=== PATIENT | female | born 1935 | race Caucasian/White ===

== ENCOUNTER 2016-12-01 13:47 | Outpatient (CLI) | payer OTHER, MEDICARE | END 2016-12-01 20:59 | disposition home or self-care (01) | LOC: SRD 13:47 | PROVIDERS: ATTEND General Practice | DX: J44.9 Chronic obstructive pulmonary disease, unspecified (principal); F17.200 Nicotine dependence, unspecified, uncomplicated; R09.89 Other specified symptoms and signs involving the circulatory and respiratory systems | CPT/HCPCS: 71020-TC ==

== ENCOUNTER 2017-02-02 13:06 | Outpatient (CLI) | payer OTHER, MEDICARE | END 2017-02-02 19:31 | disposition home or self-care (01) | LOC: SMA 13:06 | PROVIDERS: ATTEND General Practice | DX: N63 Unspecified lump in breast (principal); N60.01 Solitary cyst of right breast; N60.02 Solitary cyst of left breast | CPT/HCPCS: 76641; G0204 ==

== ENCOUNTER 2017-02-23 15:02 | Outpatient (CLI) | payer OTHER, MEDICARE | END 2017-02-23 18:01 | disposition home or self-care (01) | LOC: SRD 15:02 | PROVIDERS: ATTEND General Practice | DX: M47.26 Other spondylosis with radiculopathy, lumbar region (principal); M48.06 Spinal stenosis, lumbar region | CPT/HCPCS: 72110 ==

== ENCOUNTER 2017-08-10 13:36 | Outpatient (CLI) | payer OTHER, MEDICARE | END 2017-08-10 20:00 | disposition home or self-care (01) | LOC: SMA 13:36 | PROVIDERS: ATTEND General Practice | DX: N63.0 Unspecified lump in unspecified breast (principal); R92.2 Inconclusive mammogram | CPT/HCPCS: 76641; 77066 ==

== ENCOUNTER 2018-05-17 15:48 | Outpatient (CLI) | payer OTHER, MEDICARE | END 2018-05-17 19:14 | disposition home or self-care (01) | LOC: SRD 15:48 | PROVIDERS: ATTEND General Practice | DX: I70.8 Atherosclerosis of other arteries (principal); M75.32 Calcific tendinitis of left shoulder; Z87.891 Personal history of nicotine dependence | CPT/HCPCS: 71046-TC ==

== ENCOUNTER 2018-09-10 14:03 | Outpatient (CLI) | payer OTHER, MEDICARE | END 2018-09-10 20:30 | disposition home or self-care (01) | LOC: SMA 14:03 | PROVIDERS: ATTEND General Practice | DX: N63.13 Unspecified lump in the right breast, lower outer quadrant (principal); N63.21 Unspecified lump in the left breast, upper outer quadrant | CPT/HCPCS: 76641; 77066 ==

== ENCOUNTER 2019-04-15 12:53 | Outpatient (CLI) | payer OTHER, MEDICARE | END 2019-04-15 20:06 | disposition home or self-care (01) | LOC: SMA 12:53 | PROVIDERS: ATTEND General Practice | DX: N63.22 Unspecified lump in the left breast, upper inner quadrant (principal); R92.2 Inconclusive mammogram; R91.1 Solitary pulmonary nodule | CPT/HCPCS: 76641; 77066 ==

== ENCOUNTER 2020-11-30 09:00 | Inpatient (IN) | payer OTHER, MEDICARE, SELFPAY ==
[~2020-11-30] VITALS: Ht 167.6 cm; Wt 58.1 kg
[2020-11-30 12:07] LABS: BASOPHILS # (AUTO) 0.1 K/uL (0.0-0.2); EOSINOPHILS # (AUTO) 0.1 K/uL (0.0-0.4); MONOCYTES # (AUTO) 0.6 K/uL (0.0-1.0); NEUTROPHILS # (AUTO) 2.8 K/uL (1.8-7.7); RED BLOOD CELL COUNT(AUTO) 3.55 MIL/uL (4.2-6.2)
[2020-11-30 12:13] LABS: BASOPHILS % (AUTO) 1.5 % (0.0-2.0); EOSINOPHILS % (AUTO) 2.1 % (0.0-4.0); HEMATOCRIT 30.8 % (36-48); HEMOGLOBIN 10.2 g/dL (12.0-16.0); LYMPHOCYTES # (AUTO) 2.3 K/uL (1.0-5.5); MEAN CORPUSCULAR HEMOGLOBIN 29 pg (27-31); MEAN CORPUSCULAR HGB CONC 33 % (32-36); MEAN CORPUSCULAR VOLUME 87 fL (79.0-98.0); MONOCYTES % (AUTO) 10.4 % (1.7-9.3); PLATELET COUNT (AUTO) 216 K/uL (130-430); RED CELL DISTRIBUTION WIDTH 16.4 % (9.0-15.0)
[2020-11-30 12:26] LABS: ALANINE AMINOTRANSFERASE 18 U/L (12-78); ALBUMIN 3.6 g/dL (3.4-4.8); ANION GAP 5 (5-15); ASPARTATE AMINOTRANSFERASE 21 U/L (10-37); CALCIUM 8.7 mg/dL (8.4-11.0); CHLORIDE 106 mmol/L (98-107); CREATININE 1.21 mg/dL (0.55-1.30); GLUCOSE 96 mg/dL (70-99); SODIUM SERUM 140 mmol/L (136-145); TOTAL BILIRUBIN 0.3 mg/dL (0.0-1.0); UREA NITROGEN, BLOOD 29 mg/dL (8-21)
[2020-11-30 12:36] LABS: INR 1.1 (0.8-1.2); PROTHROMBIN TIME 10.8 SECS (9.5-12.5)
[2020-11-30 13:46] LABS: BILIRUBIN,URINE NEGATIVE (NEGATIVE); BLOOD, URINE NEGATIVE (NEGATIVE); COLOR,URINE YELLOW (YELLOW); GLUCOSE,URINE NEGATIVE (NEGATIVE); KETONES,URINE NEGATIVE (NEGATIVE); LEUKOCYTE ESTERASE ,URINE NEGATIVE (NEGATIVE); NITRITE, URINE NEGATIVE (NEGATIVE); PROTEIN URINE TRACE (NEGATIVE); UROBILINOGEN,URINE 0.2 (0.2-1.0)
[2020-11-30 13:50] LABS: CLARITY/URINE SLIGHTLY HAZY (CLEAR)
[2020-12-03] MEDS ORDERED: CEFAZOLIN 1 GM IVPB PREMIX 50 ML IV ONE (07:00)
[2020-12-03] MEDS ORDERED: MULT-1199 PO (13:24)
[2020-12-03] MEDS ORDERED: NEU300 PO (13:24)
[2020-12-03] MEDS ORDERED: FOSI20TA98 PO (13:24)
[2020-12-03] MEDS ORDERED: FENO160 PO (13:24)
[2020-12-03] MEDS ORDERED: AMLO5TAB4 PO (13:24)
[2020-12-03] MEDS ORDERED: OXYC10TA56 PO (13:24)
[2020-12-03] MEDS ORDERED: PSYL575P22 PO (13:24)
[2020-12-03] MEDS ORDERED: DOCU250C14 PO (13:24)
[2020-12-03] MEDS ORDERED: OXYIR5 PO (13:24)
[2020-12-03] MEDS ORDERED: LIP40 PO (13:24)
[2020-12-03] MEDS ORDERED: POLYMYXIN 500,000/BACIT.10,000 UNITS in NS IRR 1 L IR ONE (13:38)
[2020-12-03] MEDS ORDERED: BUPIVACAINE LIPOSOME/PF 266 MG/20 ML VIAL INFIL ONE (13:38)
[2020-12-03] MEDS ORDERED: LR 1,000 ML IV.SOLN IV ONE (14:20)
[2020-12-03] MEDS ORDERED: BUPIVACAINE /EPINEPHRINE/PF 0.25% 30 ML VIAL INJ ONE (14:20)
[2020-12-03] MEDS ORDERED: MIDAZOLAM HCL 5 MG/5 ML VIAL IVP ONE (14:20)
[2020-12-03] MEDS ORDERED: PROPOFOL 200MG/ 20ML VIAL (DIPRIVAN) IV ONE (14:20)
[2020-12-03] MEDS ORDERED: methylPREDNISolone ACETATE 40 MG/ML IM ONE (14:20)
[2020-12-03] MEDS ORDERED: NORMAL SALINE 10 ML VIAL IVP ONE (14:20)
[2020-12-03] MEDS ORDERED: MORPHINE SULFATE 10MG/10ML PF AMP EP ONE (14:20)
[2020-12-03] MEDS ORDERED: DIPHENHYDRAMINE INJ 50 MG/ML VIAL IVP PRN (17:00)
[2020-12-03] MEDS ORDERED: NALOXONE HCL 0.4 MG/ML AMP (NARCAN) IVP PRN ×2 (17:00)
[2020-12-03] MEDS ORDERED: ONDANSETRON 4 MG ODT TAB PO PRN (17:00)
[2020-12-03] MEDS ORDERED: NALBUPHINE HCL 10 MG/ML AMP IVP PRN (17:00)
[2020-12-03] MEDS ORDERED: MORPHINE SULFATE 10MG/10ML PF AMP SP SCH (17:00)
[2020-12-03] MEDS ORDERED: ACETAMINOPHEN 325 MG TABLET PO PRN (17:00)
[2020-12-03] MEDS ORDERED: KETOROLAC TROMETHAMINE 60 MG/2 ML VIAL IM PRN (17:00)
[2020-12-03] MEDS ORDERED: ONDANSETRON HCL 4 MG/2 ML VIAL IVP PRN ×2 (17:00)
[2020-12-03] MEDS ORDERED: fentaNYL CITRATE/PF 100 MCG/2 ML AMP IVP PRN ×2 (17:00)
[2020-12-03 18:46] VITALS: BP_SYST 111
[2020-12-03 19:30] VITALS: BP_SYST 111
[2020-12-03 20:00] VITALS: BP_SYST 122
[2020-12-03 20:12] VITALS: BP_SYST 111
[2020-12-03] MEDS: GABAPENTIN 300 MG CAPSULE PO SCH (21:56)
[2020-12-03] MEDS: DOCUSATE SODIUM 100 MG CAPSULE PO SCH (21:56)
[2020-12-03] MEDS: ATORVASTATIN 20 MG TABLET PO SCH (21:56)
[2020-12-03] MEDS: amLODIPine BESYLATE 5 MG TABLET PO SCH (21:57)
[2020-12-03] MEDS ORDERED: CEFAZOLIN 1 GM IVPB PREMIX 100 ML IV ONE (22:45)
[2020-12-03] MEDS: CEFAZOLIN 1 GM IVPB PREMIX 50 ML IV SCH (22:48)
[2020-12-03] MEDS: OXYCODONE/ACETAMINOPHEN *10*mg/325 mg TABLET PO PRN (23:18)
[2020-12-03 23:54] LABS: BILIRUBIN,URINE NEGATIVE (NEGATIVE); BLOOD, URINE NEGATIVE (NEGATIVE); CLARITY/URINE CLEAR (CLEAR); COLOR,URINE YELLOW (YELLOW); GLUCOSE,URINE NEGATIVE (NEGATIVE); KETONES,URINE NEGATIVE (NEGATIVE); LEUKOCYTE ESTERASE ,URINE NEGATIVE (NEGATIVE); NITRITE, URINE NEGATIVE (NEGATIVE); PH,URINE 5.5 (5.0-8.0); PROTEIN URINE NEGATIVE (NEGATIVE); UROBILINOGEN,URINE 0.2 (0.2-1.0)
[2020-12-04 00:39] VITALS: BP_SYST 159
[2020-12-04] MEDS: CEFAZOLIN 1 GM IVPB PREMIX 50 ML IV SCH (05:11)
[2020-12-04 07:15] LABS: HEMATOCRIT 19.8 % (36-48); HEMOGLOBIN 6.4 g/dL (12.0-16.0)
[2020-12-04 08:00] VITALS: BP_SYST 141
[2020-12-04] MEDS: MULTIVITS,CA,MINERALS/IRON/FA 1 TABLET PO SCH (08:51)
[2020-12-04] MEDS: amLODIPine BESYLATE 5 MG TABLET PO SCH ×2 (08:51→21:29)
[2020-12-04] MEDS: GABAPENTIN 300 MG CAPSULE PO SCH ×2 (08:51→21:28)
[2020-12-04] MEDS: lisinopriL 20 MG TABLET PO SCH (08:51)
[2020-12-04] MEDS: DOCUSATE SODIUM 100 MG CAPSULE PO SCH ×2 (08:51→21:28)
[2020-12-04] MEDS: OXYCODONE/ACETAMINOPHEN *10*mg/325 mg TABLET PO PRN ×2 (08:52→21:27)
[2020-12-04] MEDS: FENOFIBRATE 160 MG TABLET PO SCH (08:59)
[2020-12-04] MEDS ORDERED: FOSINOPRIL SODIUM 20 MG TABLET PO SCH (09:00)
[2020-12-04] MEDS ORDERED: DOCUSATE SODIUM 100 MG CAPSULE PO SCH (09:00)
[2020-12-04 11:19] VITALS: BP_SYST 149
[2020-12-04] MEDS: ENOXAPARIN SODIUM 40 MG/0.4 ML SYRINGE SUBCUT SCH (12:00)
[2020-12-04] MEDS: HYDROmorphone 2 MG/ML VIAL IVP PRN ×2 (14:57→23:58)
[2020-12-04 15:27] VITALS: BP_SYST 135
[2020-12-04 20:00] VITALS: BP_SYST 130
[2020-12-04] MEDS: ATORVASTATIN 20 MG TABLET PO SCH (21:28)
[2020-12-05 00:25] VITALS: BP_SYST 100
[2020-12-05] MEDS ORDERED: DIPHENHYDRAMINE HCL 12.5 MG/5 ML UDC PO PRN (01:00)
[2020-12-05 04:16] VITALS: BP_SYST 141
[2020-12-05] MEDS: OXYCODONE/ACETAMINOPHEN *10*mg/325 mg TABLET PO PRN ×2 (04:26→21:35)
[2020-12-05 08:14] LABS: BASOPHILS # (AUTO) 0.1 K/uL (0.0-0.2); BASOPHILS % (AUTO) 0.4 % (0.0-2.0); EOSINOPHILS % (AUTO) 0.1 % (0.0-4.0); HEMOGLOBIN 9.9 g/dL (12.0-16.0); LYMPHOCYTES # (AUTO) 1.7 K/uL (1.0-5.5); LYMPHOCYTES % (AUTO) 14.2 % (20.5-51.5); MEAN CORPUSCULAR HEMOGLOBIN 29 pg (27-31); MEAN CORPUSCULAR HGB CONC 33 % (32-36); MEAN CORPUSCULAR VOLUME 87 fL (79.0-98.0); MONOCYTES # (AUTO) 1.7 K/uL (0.0-1.0); MONOCYTES % (AUTO) 13.6 % (1.7-9.3); NEUTROPHILS # (AUTO) 8.7 K/uL (1.8-7.7); NEUTROPHILS % (AUTO) 71.7 % (40.0-70.0); PLATELET COUNT (AUTO) 131 K/uL (130-430); RED BLOOD CELL COUNT(AUTO) 3.45 MIL/uL (4.2-6.2); RED CELL DISTRIBUTION WIDTH 14.9 % (9.0-15.0); WHITE BLOOD COUNT (AUTO) 12.2 K/uL (4.8-10.8)
[2020-12-05 08:21] LABS: ANION GAP 9 (5-15); CALCIUM 8.8 mg/dL (8.4-11.0); CHLORIDE 106 mmol/L (98-107); CREATININE 1.14 mg/dL (0.55-1.30); GLUCOSE 112 mg/dL (70-99); SODIUM SERUM 140 mmol/L (136-145); UREA NITROGEN, BLOOD 30 mg/dL (8-21)
[2020-12-05] MEDS: MULTIVITS,CA,MINERALS/IRON/FA 1 TABLET PO SCH (09:15)
[2020-12-05] MEDS: FENOFIBRATE 160 MG TABLET PO SCH (09:15)
[2020-12-05] MEDS: GABAPENTIN 300 MG CAPSULE PO SCH ×2 (09:15→21:33)
[2020-12-05] MEDS: DOCUSATE SODIUM 100 MG CAPSULE PO SCH ×2 (09:15→21:33)
[2020-12-05] MEDS: amLODIPine BESYLATE 5 MG TABLET PO SCH ×2 (09:16→21:00)
[2020-12-05] MEDS: lisinopriL 20 MG TABLET PO SCH (09:17)
[2020-12-05] MEDS: ENOXAPARIN SODIUM 40 MG/0.4 ML SYRINGE SUBCUT SCH (09:19)
[2020-12-05] MEDS: HYDROmorphone 2 MG/ML VIAL IVP PRN ×2 (09:35→15:52)
[2020-12-05 11:25] VITALS: BP_SYST 158
[2020-12-05 14:59] VITALS: BP_SYST 139
[2020-12-05] MEDS ORDERED: MILK OF MAGNESIA 30 ML UDC PO PRN (15:45)
[2020-12-05 20:00] VITALS: BP_SYST 100
[2020-12-05] MEDS: ATORVASTATIN 20 MG TABLET PO SCH (21:33)
[2020-12-05] MEDS: PSYLLIUM HUSK 1 PKT PACKET PO SCH (21:34)
[2020-12-06 00:55] VITALS: BP_SYST 126
[2020-12-06] MEDS: HYDROmorphone 2 MG/ML VIAL IVP PRN (02:35)
[2020-12-06 07:56] VITALS: BP_SYST 165
[2020-12-06] MEDS: PSYLLIUM HUSK 1 PKT PACKET PO SCH ×2 (08:32→21:27)
[2020-12-06] MEDS: FENOFIBRATE 160 MG TABLET PO SCH (08:33)
[2020-12-06] MEDS: DOCUSATE SODIUM 100 MG CAPSULE PO SCH ×2 (08:33→21:20)
[2020-12-06] MEDS: OXYCODONE/ACETAMINOPHEN *10*mg/325 mg TABLET PO PRN ×3 (08:33→21:20)
[2020-12-06] MEDS: amLODIPine BESYLATE 5 MG TABLET PO SCH ×2 (08:33→21:21)
[2020-12-06] MEDS: lisinopriL 20 MG TABLET PO SCH (08:34)
[2020-12-06] MEDS: GABAPENTIN 300 MG CAPSULE PO SCH ×2 (08:34→21:20)
[2020-12-06] MEDS: ENOXAPARIN SODIUM 40 MG/0.4 ML SYRINGE SUBCUT SCH (08:35)
[2020-12-06] MEDS: MULTIVITS,CA,MINERALS/IRON/FA 1 TABLET PO SCH (08:35)
[2020-12-06 08:53] VITALS: BP_SYST 165
[2020-12-06 11:27] VITALS: BP_SYST 149
[2020-12-06 15:17] VITALS: BP_SYST 150
[2020-12-06 20:00] VITALS: BP_SYST 136
[2020-12-06] MEDS: ATORVASTATIN 20 MG TABLET PO SCH (21:22)
[2020-12-07 00:23] VITALS: BP_SYST 128
[2020-12-07] MEDS: HYDROmorphone 2 MG/ML VIAL IVP PRN ×3 (02:38→14:33)
[2020-12-07] MEDS: OXYCODONE/ACETAMINOPHEN *10*mg/325 mg TABLET PO PRN ×2 (06:52→21:43)
[2020-12-07 08:00] VITALS: BP_SYST 113
[2020-12-07] MEDS: GABAPENTIN 300 MG CAPSULE PO SCH ×2 (09:18→21:40)
[2020-12-07] MEDS: lisinopriL 20 MG TABLET PO SCH (09:19)
[2020-12-07] MEDS: PSYLLIUM HUSK 1 PKT PACKET PO SCH ×2 (09:19→21:40)
[2020-12-07] MEDS: DOCUSATE SODIUM 100 MG CAPSULE PO SCH ×2 (09:19→21:40)
[2020-12-07] MEDS: amLODIPine BESYLATE 5 MG TABLET PO SCH ×2 (09:19→21:41)
[2020-12-07] MEDS: MULTIVITS,CA,MINERALS/IRON/FA 1 TABLET PO SCH (09:20)
[2020-12-07] MEDS: ENOXAPARIN SODIUM 40 MG/0.4 ML SYRINGE SUBCUT SCH (09:20)
[2020-12-07] MEDS: FENOFIBRATE 160 MG TABLET PO SCH (09:20)
[2020-12-07 12:56] VITALS: BP_SYST 120
[2020-12-07 16:00] VITALS: BP_SYST 122
[2020-12-07 20:00] VITALS: BP_SYST 135
[2020-12-07] MEDS: ATORVASTATIN 20 MG TABLET PO SCH (21:41)
[2020-12-08] MEDS: OXYCODONE/ACETAMINOPHEN *10*mg/325 mg TABLET PO PRN ×3 (03:19→14:36)
[2020-12-08 04:00] VITALS: BP_SYST 139
[2020-12-08 08:00] VITALS: BP_SYST 152
[2020-12-08] MEDS: PSYLLIUM HUSK 1 PKT PACKET PO SCH (08:46)
[2020-12-08] MEDS: FENOFIBRATE 160 MG TABLET PO SCH (08:46)
[2020-12-08] MEDS: GABAPENTIN 300 MG CAPSULE PO SCH (08:46)
[2020-12-08] MEDS: amLODIPine BESYLATE 5 MG TABLET PO SCH (08:46)
[2020-12-08] MEDS: MULTIVITS,CA,MINERALS/IRON/FA 1 TABLET PO SCH (08:47)
[2020-12-08] MEDS: lisinopriL 20 MG TABLET PO SCH (08:47)
[2020-12-08] MEDS: DOCUSATE SODIUM 100 MG CAPSULE PO SCH (08:47)
[2020-12-08] MEDS: ENOXAPARIN SODIUM 40 MG/0.4 ML SYRINGE SUBCUT SCH (08:52)
[2020-12-08] MEDS: HYDROmorphone 2 MG/ML VIAL IVP PRN (09:30)
[2020-12-08 12:00] VITALS: BP_SYST 142
[2020-12-08 12:32] VITALS: BP_SYST 142
== END 2020-12-08 15:10 | DRG 470 ==
LOC: SMU 12-03 11:24
PROVIDERS: ADMIT Orthopaedic Surgery; ATTEND Orthopaedic Surgery
PROC: 0SRB0JZ Replacement of Left Hip Joint with Synthetic Substitute, Open Approach (ICD-10-PCS; principal; 2020-12-03 14:20)
PROC: 30233N1 Transfusion of Nonautologous Red Blood Cells into Peripheral Vein, Percutaneous Approach (ICD-10-PCS; 2020-12-04)
DX: M16.12 Unilateral primary osteoarthritis, left hip (principal); M17.11 Unilateral primary osteoarthritis, right knee; Z20.822 Contact with and (suspected) exposure to COVID-19
CPT/HCPCS: 36415; 71046-TC; 72170-TC; 80048; 80053; 81003; 85018; 85025; 85610-TC; 85730-TC; 86886; 86900; 86901; 86920; 87081; 88305; 88311; 93005; 94760; 97110-GP; 97112-GP; 97163; 97530-GP; C9290; J0690; J1030; J1170; J1650; J2250; J2274; J2704; J3490; J7040; J7120; P9021; U0003

== ENCOUNTER 2020-12-20 20:24 | Inpatient (IN) | payer OTHER, MEDICARE, SELFPAY ==
[~2020-12-20] VITALS: Ht 170.2 cm; Wt 57.6 kg
[~2020-12-20 20:24] MED LIST: AMLO5TAB4 PO; DOCU250C14 PO; FENO160 PO; FOSI20TA98 PO; GLYCOPYRROLATE 0.2 MG/ML VIAL IJ ONE; HYDROmorphone 2 MG/ML VIAL IVP ONE; LIDOCAINE 2%, 20 ML MDV INJ ONE; LIP40 PO; LR 1,000 ML IV.SOLN IV ONE; METOCLOPRAMIDE HCL 10 MG/2 ML VIAL IVP ONE; MULT-1199 PO; NEOSTIGMINE METHYLSULFATE 1 MG/ML, 10 ML VIAL IVP ONE; NEU300 PO; ONDANSETRON HCL 4 MG/2 ML VIAL IVP ONE; OXYC10TA56 PO; PRO40 PO; PROPOFOL 200MG/ 20ML VIAL (DIPRIVAN) IV ONE; PSYL575P22 PO; ROCURONIUM BROMIDE 10 MG/ML (ZEMURON) IV ONE; SEVOFLURANE 15 MIN GAS INH ONE; ePHEDrine sulfate 50 MG/ML VIAL IVP ONE
[2020-12-21 00:04] VITALS: BP_SYST 156
[2020-12-21] MEDS: HYDROmorphone 2 MG/ML VIAL IVP PRN ×3 (00:27→21:19)
[2020-12-21] MEDS: D5/0.45 NS 1,000 ML IV SCH ×3 (00:36→15:34)
[2020-12-21] MEDS ORDERED: ACET325T PO (00:54)
[2020-12-21] MEDS ORDERED: BISA5TAB10 PR (00:54)
[2020-12-21] MEDS ORDERED: LOVI40 SQ (00:54)
[2020-12-21] MEDS ORDERED: LISI40TA13 PO (00:54)
[2020-12-21] MEDS ORDERED: FENO145T PO (00:54)
[2020-12-21] MEDS ORDERED: MELA1TAB29 PO (00:54)
[2020-12-21] MEDS ORDERED: METH-799 PO (00:54)
[2020-12-21] MEDS ORDERED: LACT10SO7 PO (00:54)
[2020-12-21] MEDS ORDERED: FERR240T5 PO (00:54)
[2020-12-21] MEDS ORDERED: OXYC-128 PO (01:04)
[2020-12-21] MEDS ORDERED: TRAM50TA2 PO (01:04)
[2020-12-21] MEDS ORDERED: ACETAMINOPHEN 325 MG TABLET PO PRN (01:30)
[2020-12-21] MEDS ORDERED: traMADol HCL HCL 50 MG TABLET (ULTRAM) PO PRN (01:30)
[2020-12-21] MEDS ORDERED: NON-FORMULARY MEDICATION (Melatonin/Pyridoxine HCl (B6) (Melatonin 3 mg Tablet) 1 TAB) PO PRN (01:30)
[2020-12-21] MEDS ORDERED: BISACODYL 5 MG TABLET.DR (DULCOLAX) PO PRN (01:30)
[2020-12-21] MEDS ORDERED: OXYCODONE/ACETAMINOPHEN 5-325 TABLET PO PRN (01:30)
[2020-12-21] MEDS ORDERED: LACTULOSE 20 GM/30 ML UDC PO PRN (01:45)
[2020-12-21 06:34] LABS: BASOPHILS # (AUTO) 0.1 K/uL (0.0-0.2); BASOPHILS % (AUTO) 1.8 % (0.0-2.0); EOSINOPHILS # (AUTO) 0.2 K/uL (0.0-0.4); EOSINOPHILS % (AUTO) 2.7 % (0.0-4.0); HEMATOCRIT 26.8 % (36-48); HEMOGLOBIN 8.8 g/dL (12.0-16.0); LYMPHOCYTES % (AUTO) 27.2 % (20.5-51.5); MEAN CORPUSCULAR HEMOGLOBIN 29 pg (27-31); MEAN CORPUSCULAR HGB CONC 33 % (32-36); MEAN CORPUSCULAR VOLUME 89 fL (79.0-98.0); MONOCYTES # (AUTO) 0.9 K/uL (0.0-1.0); MONOCYTES % (AUTO) 12.3 % (1.7-9.3); NEUTROPHILS # (AUTO) 4.1 K/uL (1.8-7.7); PLATELET COUNT (AUTO) 372 K/uL (130-430); RED BLOOD CELL COUNT(AUTO) 3.01 MIL/uL (4.2-6.2); RED CELL DISTRIBUTION WIDTH 15.7 % (9.0-15.0); WHITE BLOOD COUNT (AUTO) 7.4 K/uL (4.8-10.8)
[2020-12-21 06:37] LABS: ALANINE AMINOTRANSFERASE 23 U/L (12-78); ALBUMIN 2.4 g/dL (3.4-4.8); ASPARTATE AMINOTRANSFERASE 35 U/L (10-37); CALCIUM 8.7 mg/dL (8.4-11.0); GLUCOSE 100 mg/dL (70-99); TOTAL BILIRUBIN 0.3 mg/dL (0.0-1.0); UREA NITROGEN, BLOOD 18 mg/dL (8-21)
[2020-12-21] MEDS ORDERED: FERR324T22 PO (07:04)
[2020-12-21 07:20] LABS: ANION GAP 9 (5-15); CHLORIDE 105 mmol/L (98-107); POTASSIUM 4.1 mmol/L (3.5-5.1); SODIUM SERUM 140 mmol/L (136-145)
[2020-12-21 07:23] LABS: INR 1.1 (0.8-1.2)
[2020-12-21] MEDS ORDERED: PSYL1PAC8 PO (07:53)
[2020-12-21] MEDS ORDERED: PSYLLIUM HUSK 1 PKT PACKET PO PRN (08:00)
[2020-12-21 08:06] VITALS: BP_SYST 153
[2020-12-21] MEDS: DOCUSATE SODIUM 250 MG CAPSULE PO SCH ×2 (09:00→21:03)
[2020-12-21] MEDS: amLODIPine BESYLATE 5 MG TABLET PO SCH ×2 (09:00→21:03)
[2020-12-21] MEDS: PANTOPRAZOLE SODIUM 40 MG TAB PO SCH ×2 (09:00→21:03)
[2020-12-21] MEDS: GABAPENTIN 300 MG CAPSULE PO SCH ×2 (09:00→21:03)
[2020-12-21] MEDS: FENOFIBRATE NANOCRYSTALLIZED 48 MG TABLET (TRICOR) PO SCH (09:00)
[2020-12-21] MEDS: FERROUS GLUCONATE 324 MG TABLET PO SCH (09:00)
[2020-12-21] MEDS: ENOXAPARIN SODIUM 40 MG/0.4 ML SYRINGE SQ SCH (09:00)
[2020-12-21] MEDS: methocarbamoL 500 MG TABLET PO SCH ×4 (09:00→21:03)
[2020-12-21] MEDS: MULTIVITS,CA,MINERALS/IRON/FA 1 TABLET PO SCH (09:00)
[2020-12-21] MEDS: lisinopriL 20 MG TABLET PO SCH (09:00)
[2020-12-21 12:19] VITALS: BP_SYST 140
[2020-12-21] MEDS ORDERED: OXYCODONE/ACETAMINOPHEN *10*mg/325 mg TABLET PO PRN (13:30)
[2020-12-21] MEDS ORDERED: LR 1,000 ML IV SCH (14:30)
[2020-12-21] MEDS ORDERED: HYDROmorphone 1 MG/ML INJ. CARTRIDGE IVP PRN ×2 (14:30)
[2020-12-21] MEDS ORDERED: ONDANSETRON HCL 4 MG/2 ML VIAL IVP PRN (14:30)
[2020-12-21] MEDS ORDERED: HYDROmorphone 2 MG/ML VIAL IVP PRN (14:30)
[2020-12-21] MEDS ORDERED: NALOXONE HCL 0.4 MG/ML AMP (NARCAN) IVP PRN ×3 (14:30)
[2020-12-21 16:14] VITALS: BP_SYST 131
[2020-12-21 17:32] VITALS: BP_SYST 131
[2020-12-21 20:00] VITALS: BP_SYST 149
[2020-12-21] MEDS ORDERED: ATORVASTATIN 20 MG TABLET PO SCH (21:00)
[2020-12-22 02:27] VITALS: BP_SYST 129
[2020-12-22] MEDS: D5/0.45 NS 1,000 ML IV SCH (04:22)
[2020-12-22] MEDS: HYDROmorphone 2 MG/ML VIAL IVP PRN (06:05)
[2020-12-22 08:10] VITALS: BP_SYST 130
[2020-12-22] MEDS: methocarbamoL 500 MG TABLET PO SCH ×2 (08:12→13:18)
[2020-12-22] MEDS: FENOFIBRATE NANOCRYSTALLIZED 48 MG TABLET (TRICOR) PO SCH (08:12)
[2020-12-22] MEDS: lisinopriL 20 MG TABLET PO SCH (08:13)
[2020-12-22] MEDS: DOCUSATE SODIUM 250 MG CAPSULE PO SCH (08:13)
[2020-12-22] MEDS: FERROUS GLUCONATE 324 MG TABLET PO SCH (08:13)
[2020-12-22] MEDS: MULTIVITS,CA,MINERALS/IRON/FA 1 TABLET PO SCH (08:13)
[2020-12-22] MEDS: GABAPENTIN 300 MG CAPSULE PO SCH (08:13)
[2020-12-22] MEDS: PANTOPRAZOLE SODIUM 40 MG TAB PO SCH (08:14)
[2020-12-22] MEDS: amLODIPine BESYLATE 5 MG TABLET PO SCH (08:15)
[2020-12-22] MEDS: ENOXAPARIN SODIUM 40 MG/0.4 ML SYRINGE SQ SCH (08:18)
[2020-12-22] MEDS ORDERED: FERROUS GLUCONATE 324 MG TABLET PO SCH (09:00)
[2020-12-22 12:13] VITALS: BP_SYST 121
[2020-12-22 15:38] VITALS: BP_SYST 121
== END 2020-12-22 17:45 | DRG 560 ==
LOC: STU 22:00
PROVIDERS: ADMIT Family Medicine; ATTEND Family Medicine
PROC: 0SSBXZZ Reposition Left Hip Joint, External Approach (ICD-10-PCS; principal; 2020-12-21 13:34)
DX: T84.021A Dislocation of internal left hip prosthesis, initial encounter (principal); E44.0 Moderate protein-calorie malnutrition; Z68.1 Body mass index [BMI] 19.9 or less, adult; I10 Essential (primary) hypertension; M16.0 Bilateral primary osteoarthritis of hip; D64.9 Anemia, unspecified; M81.0 Age-related osteoporosis without current pathological fracture; Z20.822 Contact with and (suspected) exposure to COVID-19; F17.200 Nicotine dependence, unspecified, uncomplicated; Y83.8 Other surgical procedures as the cause of abnormal reaction of the patient, or of later complication, without mention of misadventure at the time of the procedure; Y92.89 Other specified places as the place of occurrence of the external cause
CPT/HCPCS: 36415; 76000; 80053; 85025; 85610-TC; 87081; G0378; J1170; J1650; J2001; J2405; J2704; J2710; J2765; J3490; J7120